=== PATIENT | male | born 1955 | race Caucasian/White ===

== ENCOUNTER 2019-10-14 14:30 | Outpatient (RCR) | payer OTHER ==
[~2019-10-14 14:30] MED LIST: AMOXICILLIN 50500 MG PO; IBUPROFEN 200200 MG PO; MIRALAX PA17 GM/Dose PO; OXYCONTIN 20MG20 MG PO; PERCR 7.5 PO; PRILOSEC 20MG20 MG PO; TRANSDERM-0.5 MG/21 TD; TYLENOL 500MG500 MG PO; ZOFRAN 4MG T4 MG/TAB PO
== END 2019-10-18 11:31 | disposition home or self-care (01) ==
LOC: MKS.ESL.PT 14:30
DX: M17.12 Unilateral primary osteoarthritis, left knee (principal); Z96.652 Presence of left artificial knee joint

== ENCOUNTER 2020-05-15 13:05 | Outpatient (RCR) | payer OTHER | END 2020-05-26 11:13 | disposition home or self-care (01) | LOC: MKS.ESL.PT 13:05 | DX: Z01.812 Encounter for preprocedural laboratory examination (principal); M17.11 Unilateral primary osteoarthritis, right knee ==

== ENCOUNTER 2020-06-22 11:00 | Outpatient (RCR) | payer OTHER | END 2020-08-14 | disposition home or self-care (01) | LOC: MKS.ESL.PT | DX: Z96.651 Presence of right artificial knee joint (principal) ==